=== PATIENT | male | born 1990 | race African-American/Black ===

== ENCOUNTER 2020-10-05 18:03 | Emergency (ER) | payer BC ==
[~2020-10-05] VITALS: Ht 165.1 cm; Wt 92.5 kg
[2020-10-05 18:12] VITALS: BP 136/82
[2020-10-05] MEDS ORDERED: LIDOCAINE HCL-MPF 1% 2ML VIAL ONE (18:23)
[2020-10-05] MEDS ORDERED: KETOROLAC 60 MG VIAL (30MG/ML) ONE (18:23)
[2020-10-05] MEDS ORDERED: CEFTRIAXONE 1G VIAL ONE (18:23)
[2020-10-05] MEDS ORDERED: LEVO750T46 PO (18:36)
[2020-10-05] MEDS ORDERED: SULF1TAB42 PO (18:36)
[2020-10-05] MEDS ORDERED: IBUP1TAB76 PO (18:36)
[2020-10-05] MEDS ORDERED: CEFTRIAXONE 1G VIAL IM SCH (18:40)
[2020-10-05] MEDS ORDERED: KETOROLAC 60 MG VIAL (30MG/ML) IM ONE (18:40)
== END 2020-10-05 19:36 | disposition home or self-care (01) ==
LOC: EDH 18:03
DX: N45.1 Epididymitis (principal); Z87.01 Personal history of pneumonia (recurrent)
CPT/HCPCS: 96372 ×2; 99284; J0696; J1885; J3490